=== PATIENT | female | born 1995 | race Caucasian/White ===

== ENCOUNTER 2021-07-07 12:24 | Outpatient (REF) | payer MEDICAID, SELFPAY ==
[2021-07-07 12:53] LABS: COVID-19 Test Negative (Negative); IDNOW Serial# 9DD0AD1C
== END 2021-07-07 12:25 | disposition home or self-care (01) ==
LOC: HO.LAB 12:24
PROVIDERS: Visit Provider Internal Medicine
DX: Z20.822 Contact with and (suspected) exposure to COVID-19 (principal)
CPT/HCPCS: 36415; 87635; C9803

== ENCOUNTER 2022-08-23 10:54 | Emergency (ER) | payer MEDICAID, SELFPAY ==
--- NOTE | ~2022-08-23 | CT_ITS ---
EXAMINATION: CT HEAD WITHOUT CONTRAST CLINICAL INFORMATION: Left-sided headaches COMPARISON: CT head from 06/26/2019 TECHNIQUE: Contiguous axial imaging was performed from the skull base to vertex without intravenous administration of contrast. This CT examination was performed using dose optimization techniques as appropriate, variously including the following: *Automated exposure control *Adjustment of mA and/or kV according to patient size (this includes techniques or standardized protocols for targeted exams where dose is matched to indication/reason for exam; i.e. extremities or head) *Use of iterative reconstruction technique DLP: 666 mGy-cm FINDINGS: There is no evidence of acute intracranial hemorrhage or territorial infarction. No abnormal mass effect or midline shift is seen. Kirk to white matter differentiation is well preserved. No extra-axial fluid collections are identified. The ventricles are normal in size. There is no abnormal attenuation within the brain parenchyma. The osseous structures and soft tissues are normal. The mastoid air cells and visualized portions of the paranasal sinuses are well aerated. CT/CT head/brain wo IV con IMPRESSION: No acute intracranial pathology.
[2022-08-23 10:57] VITALS: BP 137/70; PULSE 73; RESP 18; TEMP 36.8; O2SAT 98; BMI 21.2
--- NOTE | 2022-08-23 17:09 | ED_ITS ---
HPI - Headache General Chief Complaint: Headache Stated Complaint: headaches Time Seen by Provider: 08/23/22 16:18 Source: patient Mode of arrival: ambulatory Limitations: no limitations History of Present Illness HPI Narrative: 27-year-old otherwise healthy female presents to the ER for evaluation of left-sided electrical shocks type of headache that come and go for the last 2 years. Patient reports that she went several months with no recurrence of these types of headaches but about 1 week ago they started up again. She describes them as brief electric shocks on the left side of her head that come in waves like contractions. She denies any weakness, numbness, tingling, gait instability, or head trauma. She does not take medication for them. She has not seen a doctor for them. She googled it yesterday and said it could be life threatening so she came for evaluation. No current headaches. Onset (ago): year(s) Onset description: suddenly Location: left Severity: moderate Pain scale (0-10): 7 Quality & Timing: sharp Exacerbating factors: none Relieving factors: nothing Associated symptoms: none Treatments prior to arrival: none Related Data Allergies Allergy/AdvReac Type Severity Reaction Status Date / Time No Known Allergies Allergy Unverified 07/30/20 16:27 Review of Systems Review of Systems: Constitutional: No Fever, No Chills Eyes: No Eye Pain, No Swelling, No vision changes Cardiovascular: No Chest Pain, No SOB Respiratory: No Cough, No Sputum Gastrointestinal: No Nausea, No Vomiting, No Diarrhea, No abdominal Pain Musculoskeletal: No joint pain, No Myalgias Skin: No Skin Lesions, No rash Neuro: No Weakness, No Numbness, No Dizziness, + Headache Psych: + Anxiety/Panic, No Depression Heme/Lymph: No Bruising, No Lymphadenopathy PMFSH Social History Social History Advance Directives: No Advance Directives Information Provided: Yes Physical Exam Vital Signs: Vital Signs: Last Vital Signs Temp 98.2 F 08/23/22 10:57 Pulse 73 08/23/22 10:57 Resp 18 08/23/22 10:57 BP 137/70 08/23/22 10:57 Pulse Ox 98 08/23/22 10:57 O2 Del Method 08/23/22 10:57 BMI result Body Mass Index 21.2 Appearance: Alert. Oriented X3. No acute distress. Eyes: Pupils equal, round and reactive to light. No nystagmus ENT: Pharynx normal. Neck: Normal inspection. Neck supple. CVS: Normal heart rate and rhythm. Pulses normal. Respiratory: No respiratory distress. Breath sounds normal. Skin: Skin warm and dry. Normal skin color. Normal skin turgor. No rashes. Extremities: No lower extremity edema. Normal inspection x4 Neuro: Oriented X 3. No motor deficit. No sensory deficit. CN II-XII intact. Normal speech and cognition. Normal steady gait. Course Course Course Narrative: 47-year-old female presents to the ER for evaluation of intermittent left- sided, brief sharp headaches that been going on for the last 2 years. No neck pain, no fevers. No other medical history. Neurologically intact. No history of trauma. CT scan today was normal. This time comfortable with discharge home with plan to follow-up with PCP and Neurology. Encouraged Excedrin migraine and Tylenol as needed. Stable for DC. Critical Care Time Critical Care Time Critical Care Time: No Discharge Plan Discharge Clinical Impression: Headache Patient Disposition: Home, Self-Care Instructions: General Headache (ED) Additional Instructions: Your CT head today was normal. Recommend Tylenol or Excedrin as needed for headaches. Recommend following up with Neurology for further evaluation and treatment. If you develop new or worsening symptoms call 911 or come back to the ER for further evaluation. Referrals: [facility] [place] [facility] [place] Group] (2 years of left sided headaches, electric shock like) Stand Alone Forms: Work/School Release Interventions: ED Discharge Assessment Last Done: 08/23/22 17:42 Discharge Date/Time: 08/23/22 17:43
--- NOTE | 2022-08-23 17:41 | PC.NURSE ---
PT EXAMINED BY PROVIDER. PT AWAKE, ALERT AND ORIENTED X 3. SKIN WARM AND DRY. RESP UNLABORED. DENIES N/V. NEUROS INTACT. GCS=15 CT ORDERED AND RESULTS PROVIDED TO PATIENT BY PROVIDER. PLAN IS FOR DC HOME AND F/U WITH NEURO. PT AGREEABLE TO PLAN.
== END 2022-08-23 17:43 | disposition home or self-care (01) ==
PROVIDERS: Emergency Provider Emergency Medicine
DX: R51.9 Headache, unspecified (principal)
CPT/HCPCS: 70450; 99282; 99284

== ENCOUNTER 2022-08-30 12:14 | Outpatient (REF) | payer MEDICAID, SELFPAY ==
--- NOTE | ~2022-08-30 | XR_ITS ---
EXAMINATION: XR CERVICAL SPINE CLINICAL INFORMATION: Cervicalgia COMPARISON: None TECHNIQUE: 3 views of the cervical spine were obtained. FINDINGS: There are no prevertebral soft tissue or bony abnormalities demonstrated. No compression fractures or subluxations are identified. Alignment is maintained at the atlanto-axial articulation. The disc spaces are preserved. No endplate changes are seen. The prevertebral soft tissues are normal. The foramina are patent. XR/XR cervical spine 4V IMPRESSION: Unremarkable examination.
== END 2022-08-30 12:15 | disposition home or self-care (01) ==
LOC: HO.XRAY 12:14
PROVIDERS: Absent Provider Registered Nurse; PCP Registered Nurse; Visit Provider Nurse Practitioner Primary Care
DX: M54.2 Cervicalgia (principal)
CPT/HCPCS: 72050

== ENCOUNTER 2023-06-08 12:28 | Outpatient (REF) | payer MEDICAID, SELFPAY ==
[2023-06-08 13:34] LABS: MANUAL DIFF FLAG NO
[2023-06-08 13:53] LABS: Basophils Percent Auto 0.4 % (0-2); Eosinophils Absolute Auto 0.1 X10*3/uL (0.0-0.4); Eosinophils Percent Auto 1.3 % (0-4); Hematocrit 33.4 % (37.0-47.0); Hemoglobin 10.3 g/dl (12.0-16.0); Imm Gran Abs Auto 0.01 X10*3/uL (0.00-0.03); Imm Gran Pct Auto 0.2 % (0.0-0.4); Lymphocytes Absolute Auto 1.6 X10*3/uL (1.2-4.9); Lymphocytes Percent Auto 33.4 % (20-40); Mean Corpuscular HGB Conc 30.8 g/dl (31.0-35.0); Mean Corpuscular Hemoglobin 24.3 pg (27.0-33.0); Mean Corpuscular Volume 78.8 fL (80.0-98.0); Mean Platelet Volume 10.9 fL (9.4-12.3); Monocytes Absolute Auto 0.4 X10*3/uL (0.1-1.2); Monocytes Percent Auto 8.2 % (2-11); Neutrophils Absolute Auto 2.6 x10*3/uL (2.0-8.3); Neutrophils Percent Auto 56.5 % (45-73); Platelet Count 355 X10*3/uL (160-400); Red Blood Count 4.24 X10*6/uL (4.20-5.50); Red Cell Distribution Width 14.1 % (11.0-16.0); White Blood Count 4.6 X10*3/uL (4.8-10.8)
[2023-06-08 14:16] LABS: Estimated Average Glucose 97 mg/dL
[2023-06-08 18:43] LABS: Alanine Aminotransferase 12 U/L (0-31); Albumin Level 4.5 g/dL (3.5-5.0); Alkaline Phosphatase 43 U/L (39-117); Anion Gap 17 (12-20); Aspartate Amino Transferase 19 U/L (5-31); Bilirubin Direct 0.1 mg/dL (0.0-0.5); Bilirubin Total 0.4 mg/dL (0.0-1.0); Blood Urea Nitrogen 13 mg/dL (9-16); Calcium 9.7 mg/dL (8.4-10.2); Carbon Dioxide 22 mmol/L (22-29); Chloride 105 mmol/L (96-108); Cholesterol 155 mg/dL; Estimated Glomerular Filt Rate > 60; Glucose Random 73 mg/dL (60-115); HDL Cholesterol 55 mg/dL; LDL Cholesterol Calculated 85 mg/dl; Lipase 25 U/L (8-78); Potassium 3.7 mmol/L (3.3-5.1); Sodium 140 mmol/L (135-145); Total Protein 7.5 g/dL (6.5-8.0); Triglycerides 76 mg/dL
[2023-06-08 19:45] LABS: Amylase 59 U/L (28-100)
[2023-06-08 20:04] LABS: Free T4 (Free Thyroxine) 0.84 ng/dL (0.71-1.85); Thyroid Stimulating Hormone 1.18 uIU/mL (0.32-4.0); Vitamin D 25-OH Total 11.6 ng/mL (>30)
[2023-06-09 10:18] LABS: Iron 55 mcg/dL (30-160); Percent Iron Saturation 15 % (15-50); Total Iron Binding Capacity 379 mcg/dL (228-428); Unsaturated Iron Binding 324 ug/dL
[2023-06-09 10:29] LABS: Ferritin 5 ng/mL (10-122)
== END 2023-06-08 12:29 | disposition home or self-care (01) ==
LOC: HO.HHCL 12:28
PROVIDERS: Visit Provider Family Medicine
DX: D64.9 Anemia, unspecified (principal); R14.0 Abdominal distension (gaseous)
CPT/HCPCS: 36415; 80048; 80061; 80076; 82150; 82306; 82728; 83036; 83540; 83690; 84439; 84443; 85025

== ENCOUNTER 2023-06-13 08:26 | Outpatient (REF) | payer MEDICAID, SELFPAY ==
--- NOTE | ~2023-06-13 | US_ITS ---
EXAMINATION: US ABDOMEN COMPLETE CLINICAL INFORMATION: Abdominal bloating and pain. COMPARISON: None available. TECHNIQUE: Real-time imaging of the abdominal viscera. FINDINGS: PANCREAS: Normal. ABDOMINAL AORTA: The proximal, mid, and distal segments are normal in caliber. INFERIOR VENA CAVA: Visualized portions are normal. LIVER: Normal. The liver is normal in size. The liver contour is normal. Parenchymal echogenicity is normal. No focal hepatic lesion. There is no intrahepatic biliary duct dilatation seen. GALLBLADDER: The gallbladder is physiologically distended without evidence of stones, polyps, wall thickening or pericholecystic fluid. There is minimal layering sludge. COMMON BILE DUCT: Normal in caliber measuring 0.3 cm in diameter. RIGHT KIDNEY: Normal. No hydronephrosis. No renal calculi or focal parenchymal lesions. The kidney measures 11.0 cm in maximum dimension. LEFT KIDNEY: Normal. No hydronephrosis. No renal calculi or focal parenchymal lesions. The kidney measures 11.2 cm in maximum dimension. SPLEEN: Normal. The spleen measures 10.2 cm in maximum dimension. FREE FLUID: None. US/US abdomen complete IMPRESSION: Unremarkable examination.
== END 2023-06-13 08:27 | disposition home or self-care (01) ==
LOC: HO.HMGCX 08:26
PROVIDERS: PCP Registered Nurse; Visit Provider Family Medicine
DX: R14.0 Abdominal distension (gaseous) (principal)
CPT/HCPCS: 76700

== ENCOUNTER 2023-11-08 16:15 | Outpatient (REF) | payer MEDICAID, SELFPAY ==
[2023-11-08 17:27] LABS: MANUAL DIFF FLAG NO
[2023-11-08 17:31] LABS: Basophils Percent Auto 0.3 % (0-2); Eosinophils Absolute Auto 0.1 X10*3/uL (0.0-0.4); Hematocrit 32.5 % (37.0-47.0); Hemoglobin 10.3 g/dl (12.0-16.0); Imm Gran Abs Auto 0.01 X10*3/uL (0.00-0.03); Imm Gran Pct Auto 0.2 % (0.0-0.4); Lymphocytes Absolute Auto 1.7 X10*3/uL (1.2-4.9); Lymphocytes Percent Auto 26.8 % (20-40); Mean Corpuscular HGB Conc 31.7 g/dl (31.0-35.0); Mean Corpuscular Hemoglobin 24.8 pg (27.0-33.0); Mean Corpuscular Volume 78.3 fL (80.0-98.0); Mean Platelet Volume 10.8 fL (9.4-12.3); Monocytes Absolute Auto 0.4 X10*3/uL (0.1-1.2); Monocytes Percent Auto 6.9 % (2-11); Neutrophils Absolute Auto 4.1 x10*3/uL (2.0-8.3); Neutrophils Percent Auto 64.8 % (45-73); Platelet Count 339 X10*3/uL (160-400); Red Blood Count 4.15 X10*6/uL (4.20-5.50); Red Cell Distribution Width 14.4 % (11.0-16.0); White Blood Count 6.3 X10*3/uL (4.8-10.8)
[2023-11-08 18:13] LABS: Alanine Aminotransferase 11 U/L (0-31); Albumin Level 4.3 g/dL (3.5-5.0); Alkaline Phosphatase 40 U/L (39-117); Anion Gap 10 (12-20); Aspartate Amino Transferase 15 U/L (5-31); Bilirubin Total 0.2 mg/dL (0.0-1.0); Blood Urea Nitrogen 9 mg/dL (9-16); Calcium 9.3 mg/dL (8.4-10.2); Carbon Dioxide 26 mmol/L (22-29); Chloride 107 mmol/L (96-108); Estimated Glomerular Filt Rate > 60; Glucose Random 82 mg/dL (60-115); Iron 21 mcg/dL (30-160); Percent Iron Saturation 7 % (15-50); Potassium 3.5 mmol/L (3.3-5.1); Sodium 139 mmol/L (135-145); Total Iron Binding Capacity 307 mcg/dL (228-428); Total Protein 7.1 g/dL (6.5-8.0); Unsaturated Iron Binding 286 ug/dL
[2023-11-08 18:27] LABS: TSH reflex Free T4 1.23 uIU/mL (0.32-4.0)
[2023-11-09 02:55] LABS: CT PCR NOT DETECTED (Not Detect.); NG PCR NOT DETECTED (Not Detect.)
== END 2023-11-08 16:16 | disposition home or self-care (01) ==
LOC: HO.CHCLDS 16:15
PROVIDERS: Visit Provider Family Medicine
DX: N93.9 Abnormal uterine and vaginal bleeding, unspecified (principal); R42 Dizziness and giddiness
CPT/HCPCS: 0353U; 36415; 80053; 83540; 84443; 85025

== ENCOUNTER 2024-03-06 12:04 | Outpatient (REF) | payer MEDICAID, SELFPAY ==
[2024-03-06 13:34] LABS: MANUAL DIFF FLAG NO
[2024-03-06 13:58] LABS: Basophils Percent Auto 0.3 % (0-2); Eosinophils Absolute Auto 0.1 X10*3/uL (0.0-0.4); Eosinophils Percent Auto 1.4 % (0-4); Hematocrit 34.6 % (37.0-47.0); Imm Gran Abs Auto 0.01 X10*3/uL (0.00-0.03); Imm Gran Pct Auto 0.2 % (0.0-0.4); Lymphocytes Absolute Auto 1.8 X10*3/uL (1.2-4.9); Lymphocytes Percent Auto 30.7 % (20-40); Mean Corpuscular HGB Conc 31.8 g/dl (31.0-35.0); Mean Corpuscular Hemoglobin 25.7 pg (27.0-33.0); Mean Corpuscular Volume 80.8 fL (80.0-98.0); Mean Platelet Volume 10.8 fL (9.4-12.3); Monocytes Absolute Auto 0.4 X10*3/uL (0.1-1.2); Monocytes Percent Auto 7.2 % (2-11); Neutrophils Absolute Auto 3.5 x10*3/uL (2.0-8.3); Neutrophils Percent Auto 60.2 % (45-73); Platelet Count 362 X10*3/uL (160-400); Red Blood Count 4.28 X10*6/uL (4.20-5.50); Red Cell Distribution Width 13.9 % (11.0-16.0); White Blood Count 5.8 X10*3/uL (4.8-10.8)
[2024-03-06 14:18] LABS: Anion Gap 10 (12-20); Blood Urea Nitrogen 11 mg/dL (9-16); Calcium 9.7 mg/dL (8.4-10.2); Carbon Dioxide 27 mmol/L (22-29); Chloride 105 mmol/L (96-108); Estimated Glomerular Filt Rate > 60; Glucose Random 92 mg/dL (60-115); Sodium 138 mmol/L (135-145)
== END 2024-03-06 12:05 | disposition home or self-care (01) ==
LOC: HO.HHCL 12:04
PROVIDERS: Visit Provider Emergency Medicine
DX: R07.9 Chest pain, unspecified (principal)
CPT/HCPCS: 36415; 80048; 83735; 85025

== ENCOUNTER 2025-05-01 20:17 | Emergency (ER) | payer MEDICAID, SELFPAY ==
--- NOTE | ~2025-05-01 | CT_ITS ---
CLINICAL HISTORY: right sided headache CT head without contrast Comparison: None provided Findings: No intra-axial mass, midline shift, hydrocephalus, or acute hemorrhage. No significant atrophy-like change or white matter disease. The visualized paranasal sinuses and mastoid air cells are normal. The orbits are unremarkable. There is no acute fracture. IMPRESSION: 1. No acute intracranial findings. This document has been electronically signed by: Arpit Jones MD on 05/01/2025 22:32:31
[2025-05-01 20:34] VITALS: BP 129/72; PULSE 64; RESP 16; TEMP 36.6; O2SAT 98; BMI 26.1
--- NOTE | 2025-05-01 20:36 | ED_ITS ---
HPI - Headache General Chief Complaint: Headache Stated Complaint: sharp pain in head lightening bolts Time Seen by Provider: 05/01/25 21:57 Source: patient Mode of arrival: ambulatory Limitations: no limitations History of Present Illness ED Provider: HPI Narrative: Patient has been having sharp pain on the scalp for last 1 year off and on had CT scan in the past which was negative against having the similar headache patient has also had CT scan done today which was also negative denies any light sensitivity no nausea no vomiting no history of migraines headache Related Data Previous Rx's ?Medication ?Instructions ?Recorded aetyghguan-nsydbirodgabr-eoorazdi 1 tab PO Q6H PRN hae adace #20 tabs 05/01/25 50 mg-325 mg-40 mg tablet Allergies Allergy/AdvReac Type Severity Reaction Status Date / Time No Known Allergies Allergy Verified 05/01/25 20:37 Review of Systems 2 Review of Systems: Yes all other systems are reviewed and are negative PMFSH Social History Social History Smoked in Last 30 Days: No Use of substances other than those prescribed or required for medical reasons: No Advance Directives: No Advance Directives Information Provided: Yes Patient : No Physical Exam 2 Vital Signs: Vital Signs: Last Vital Signs Temp 97.9 F 05/01/25 22:37 Pulse 57 05/01/25 22:37 Resp 16 05/01/25 22:37 BP 124/65 05/01/25 22:37 Pulse Ox 99 05/01/25 22:37 O2 Del Method Room Air 05/01/25 22:37 BMI result Body Mass Index 26.1 Appearance: Alert. Oriented X3. No acute distress. Anxious Eyes: no pallor or icterus ENT: Pharynx normal Oral Mucosa moist tympanic membrane intact no erythema, Neck: Normal inspection. Neck supple. CVS: Normal heart rate and rhythm. Pulses normal. Respiratory: No respiratory distress. Equal air entry bilateral, no wheezing/rales/rhonchi Abd: soft, not tender Skin: Skin warm and dry. Normal skin color. Normal skin turgor. Extremities: No lower extremity edema, no calf tenderness Neuro: Oriented X 3. Course Course Course Narrative: 05/01/252035 MANJINDER Dias This is a Rapid Medical Examination (RME) performed by Ayah Baez PA-C in triage. Full HPI, ROS, assessment and treatment plan per primary provider in the Main ED. Hx: 30 yo F here for eval of right sided electric shocks to head, intermittent x years. episodes are more constant x5 days. evaluated in the past for this with unremarkable work ups. saw PCP recently, prescribed gabapentin which appears to be making her symptoms worse. no vision changes. PE/vitals: well appearing Plan: labs, CT Medications Administered Discontinued Medications Generic Name Dose Route Start Last Admin Trade Name Freq PRN Reason Stop Dose Admin Acetaminophen/Butalbital/Caffeine 1 tab 05/01/25 22:10 05/01/25 22:29 Butalb/Acetamin/Caff 50/325/40 Tablet PO 05/01/25 22:11 1 tab ONCE ONE Administration Medical Decision Making Medical Decision Making [facility] Narrative: Patient clinically with anxiety and complex migraine headache will prescribe Fioricet workup is negative as such for any significant pathological problems Lab Data [facility] Lab Attestation statement: I reviewed the patient's lab results. 05/01/25 20:52 05/01/25 20:52 Labs: Lab Results 05/01/25 Range/Units 20:52 WBC 5.4 (4.8-10.8) X10*3/uL RBC 3.91 L (4.20-5.50) X10*6/uL Hgb 11.4 L (12.0-16.0) g/dl Hct 32.9 L (37.0-47.0) % MCV 84.1 (80.0-98.0) fL MCH 29.2 (27.0-33.0) pg MCHC 34.7 (31.0-35.0) g/dl RDW 12.9 (11.0-16.0) % Plt Count 276 (160-400) X10*3/uL MPV 9.9 (9.4-12.3) fL Immature Gran % (Auto) 0.2 (0.0-0.4) % Neut % (Auto) 57.5 (45-73) % Lymph % (Auto) 34.5 (20-40) % Deuel % (Auto) 6.3 (2-11) % Eos % (Auto) 1.3 (0-4) % Baso % (Auto) 0.2 (0-2) % Lymph # (Auto) 1.9 (1.2-4.9) X10*3/uL Deuel # (Auto) 0.3 (0.1-1.2) X10*3/uL Eos # (Auto) 0.1 (0.0-0.4) X10*3/uL Baso # (Auto) 0.0 (0.0-0.2) X10*3/uL Abs Immat Gran (auto) 0.01 (0.00-0.03) X10*3/uL Absolute Neuts (auto) 3.1 (2.0-8.3) x10*3/uL Absolute Nucleated RBC 0.000 (0.0-0.012) X10*3/uL Nucleated RBC % (auto) 0.0 (0.0-0.2) /100WBC Sodium 144 (135-145) mmol/L Potassium 3.8 (3.3-5.1) mmol/L Chloride 108 (96-108) mmol/L Carbon Dioxide 28 (22-29) mmol/L Anion Gap 12 (12-20) BUN 8 L (9-16) mg/dL Creatinine 0.86 (0.5-1.4) mg/dL Estim Creat Clear Calc 88.7 Estimated GFR > 60 Random Glucose 89 (60-115) mg/dL Calcium 9.8 (8.4-10.2) mg/dL Magnesium 2.0 (1.6-2.6) mg/dL Total Bilirubin 0.2 (0.0-1.0) mg/dL AST 26 (5-31) U/L ALT 27 (0-31) U/L Alkaline Phosphatase 52 (39-117) U/L Total Protein 7.3 (6.5-8.0) g/dL Albumin 4.8 (3.5-5.0) g/dL Beta HCG, Quant < 2 mIU/mL Radiology Impression Discussion of test interpretation with radiology: I have reviewed the radiologist's reading. (No acute) Discharge Plan Discharge Clinical Impression: Migraine Patient Disposition: Home, Self-Care Instructions: Migraine Headache (ED) Additional Instructions: Your symptoms likely from complex migraine Take medication as prescribed Follow up with your PCP/neurologist Prescriptions: New scrxribamv-exjywgcbnrlix-jbsf 50-325-40 mg tablet 1 tab PO Q6H PRN (Reason: haeadace) Qty: 20 0RF Interventions: ED Discharge Assessment Last Done: 05/01/25 22:37 Discharge Date/Time: 05/01/25 22:41 Print Language: Czech
[2025-05-01 20:57] LABS: MANUAL DIFF FLAG NO
[2025-05-01 21:03] LABS: Basophils Percent Auto 0.2 % (0-2); Eosinophils Absolute Auto 0.1 X10*3/uL (0.0-0.4); Eosinophils Percent Auto 1.3 % (0-4); Hematocrit 32.9 % (37.0-47.0); Hemoglobin 11.4 g/dl (12.0-16.0); Imm Gran Abs Auto 0.01 X10*3/uL (0.00-0.03); Imm Gran Pct Auto 0.2 % (0.0-0.4); Lymphocytes Absolute Auto 1.9 X10*3/uL (1.2-4.9); Lymphocytes Percent Auto 34.5 % (20-40); Mean Corpuscular HGB Conc 34.7 g/dl (31.0-35.0); Mean Corpuscular Hemoglobin 29.2 pg (27.0-33.0); Mean Corpuscular Volume 84.1 fL (80.0-98.0); Mean Platelet Volume 9.9 fL (9.4-12.3); Monocytes Absolute Auto 0.3 X10*3/uL (0.1-1.2); Monocytes Percent Auto 6.3 % (2-11); Neutrophils Absolute Auto 3.1 x10*3/uL (2.0-8.3); Neutrophils Percent Auto 57.5 % (45-73); Platelet Count 276 X10*3/uL (160-400); Red Blood Count 3.91 X10*6/uL (4.20-5.50); Red Cell Distribution Width 12.9 % (11.0-16.0); White Blood Count 5.4 X10*3/uL (4.8-10.8)
[2025-05-01 21:11] LABS: Alanine Aminotransferase 27 U/L (0-31); Albumin Level 4.8 g/dL (3.5-5.0); Alkaline Phosphatase 52 U/L (39-117); Anion Gap 12 (12-20); Aspartate Amino Transferase 26 U/L (5-31); Bilirubin Total 0.2 mg/dL (0.0-1.0); Blood Urea Nitrogen 8 mg/dL (9-16); Calcium 9.8 mg/dL (8.4-10.2); Carbon Dioxide 28 mmol/L (22-29); Chloride 108 mmol/L (96-108); Creatinine Clr Calc Pharmacy 88.7; Estimated Glomerular Filt Rate > 60; Glucose Random 89 mg/dL (60-115); Potassium 3.8 mmol/L (3.3-5.1); Sodium 144 mmol/L (135-145); Total Protein 7.3 g/dL (6.5-8.0)
[2025-05-01 21:18] LABS: HCG Quantitative < 2 mIU/mL
[2025-05-01] MEDS: Butalb/Acetamin/Caff 50/325/40 TABLET 1 TAB PO (22:29)
[2025-05-01 22:37] VITALS: BP 124/65; PULSE 57; RESP 16; TEMP 36.6; O2SAT 99
== END 2025-05-01 22:41 | disposition home or self-care (01) ==
PROVIDERS: Physician Assistant Medical; Emergency Provider Internal Medicine
DX: G43.909 Migraine, unspecified, not intractable, without status migrainosus (principal); F41.9 Anxiety disorder, unspecified; Z79.899 Other long term (current) drug therapy
CPT/HCPCS: 36415; 70450; 80053; 83735; 84702; 85025; 99284

== ENCOUNTER → 2025-05-01 20:39 | Outpatient (BNV) | payer MEDICAID, SELFPAY | PROVIDERS: Emergency Provider Internal Medicine; Visit Provider Radiology Diagnostic Radiology | DX: R51.9 Headache, unspecified (principal) | CPT/HCPCS: 70450 ==